=== PATIENT | female | born 1955 | race Caucasian/White ===

== ENCOUNTER 2023-12-05 11:50 | Emergency (ER) | payer MEDICARE, SELFPAY ==
--- NOTE | ~2023-12-05 | XR_ITS ---
XR forearm LT 2V 12/05/2023 12:28 Indication: Left arm Procedure: 2 views left forearm Comparison: No prior studies for comparison. Findings: There is a nondisplaced radial head fracture. Osteopenia. No other fracture. There is a mod erate-sized elbow effusion. Impression: 1: Nondisplaced radial head fracture with associated joint effusion. Reviewed, dictated and finalized at location B. Impression: 1: Nondisplaced radial head fracture with associated joint effusion.
[2023-12-05 12:09] VITALS: BP 177/70; PULSE 77; RESP 16; TEMP 36.9; O2SAT 100
--- NOTE | 2023-12-05 12:39 | ED.GENADULT ---
HPI - General Adult General Chief complaint: Extremity Injury, Upper Stated complaint: L ARM INJURY Time Seen by Provider: 12/05/23 12:43 Source: patient Mode of arrival: ambulatory Limitations: no limitations History of Present Illness HPI narrative: 68-year-old female patient presents to the [facility] with complaints of left elbow pain. Patient states that she was taking a walk outside yesterday and tripped on the sidewalk and fell forward. Patient states she used both arms to brace her fall and since then has been having pain to the left arm and is unable to fully straighten out the left elbow. Patient denies hitting her head or loss of consciousness. Patient states she did scrape of the left knee but is able to walk and ambulate on the left leg without any issues. Patient denies any pain to the left shoulder. Related Data Home Medications Medication Instructions Recorded Confirmed amlodipine 5 mg tablet mg 12/05/23 bupropion HCl 150 mg 24 hr tablet, mg PO 12/05/23 extended release ergocalciferol (vitamin D2) 1,250 12/05/23 mcg (50,000 unit) capsule folic acid 1 mg tablet 12/05/23 hydroxychloroquine 200 mg tablet mg PO 12/05/23 levothyroxine 88 mcg tablet mcg 12/05/23 methotrexate sodium 2.5 mg tablet mg 12/05/23 omeprazole 40 mg capsule,delayed mg 12/05/23 release Allergies Allergy/AdvReac Type Severity Reaction Status Date / Time No Known Allergies Allergy Verified 12/05/23 12:04 Review of Systems Review of Systems: CONSTITUTIONAL: Denies fever, chills, or sweats. EYES: Denies visual changes, redness, or discharge. ENT: Denies rhinorrhea, congestion, sore throat, or otalgia. CARDIOVASCULAR: Denies chest pain, palpitations, or edema. RESPIRATORY: Denies cough or dyspnea. GASTROINTESTINAL: Denies abdominal pain, nausea, vomiting, or diarrhea. GENITOURINARY: Denies dysuria or hematuria. SKIN: Denies rash or itching. MUSCULOSKELETAL: Denies back pain, joint pain, or myalgia. Positive left elbow pain NEUROLOGIC: Denies headache, numbness, or weakness. PSYCHIATRIC: Denies anxiety or depression. PMFSH Comments at the time of my signature I agree with nursing past medical history, surgical, social, and family history. There is no relevant family history pertinent to the presenting complaint. Exam Narrative: GENERAL: Well-appearing, well-nourished, and in no acute distress. HEAD: Normocephalic, atraumatic. EYES: PERRLA and EOMI. ENT: Nares clear, no rhinorrhea or epistaxis. Mucous membranes moist. NECK: Supple. No lymphadenopathy CHEST: Clear to auscultation. No respiratory distress. HEART: Regular rate and rhythm. No murmur heard. Normal peripheral pulses. ABDOMEN: Soft, nontender, nondistended, normal active bowel sounds. EXTREMITIES: Normal range of motion. No edema. SKIN: Warm, dry, no rash. NEURO: No focal deficits. Alert and oriented x3. Course Course Level of Care: Express Care Visit Vital Signs Vital signs: Vital Signs Temperature 36.9 C 12/05/23 12:09 Pulse Rate 77 12/05/23 12:09 Respiratory Rate 16 12/05/23 12:09 Blood Pressure 177/70 H 12/05/23 12:09 Pulse Oximetry 100 12/05/23 12:09 Temperature 36.9 C 12/05/23 12:09 Pulse Rate 77 12/05/23 12:09 Respiratory Rate 16 12/05/23 12:09 Blood Pressure 177/70 H 12/05/23 12:09 Pulse Oximetry 100 12/05/23 12:09 Vital signs reviewed. The patient has been informed that they may have pre-hypertension or Hypertension based on a BP reading in the department. I recommend that the patient call the primary care provider listed on their discharge instructions or a physician of their choice this week to arrange follow up for further evaluation of possible pre-hypertension or Hypertension Medical Decision Making MDM Narrative Medical decision making narrative: Discussed with patient that her x-ray shows a radial head fracture. Plan of care for patient is to discharge home with a [facility]
== END 2023-12-05 13:15 | disposition home or self-care (01) ==
PROVIDERS: Emergency Provider Nurse Practitioner Family
DX: S52.125A Nondisplaced fracture of head of left radius, initial encounter for closed fracture (principal); W18.09XA Striking against other object with subsequent fall, initial encounter; I10 Essential (primary) hypertension; G47.30 Sleep apnea, unspecified; M19.90 Unspecified osteoarthritis, unspecified site; M06.9 Rheumatoid arthritis, unspecified; E03.9 Hypothyroidism, unspecified
CPT/HCPCS: 29125; 73090; 99214; A4565; G0463